=== PATIENT | male | born 1940 | race Caucasian/White ===

== ENCOUNTER 2023-11-02 18:01 | Emergency (ER) | payer MEDICARE, SELFPAY ==
[2023-11-02 18:04] VITALS: BMI 26.6
[2023-11-02 18:07] VITALS: BP 121/83; PULSE 80; RESP 15; TEMP 36.9; O2SAT 97
--- NOTE | 2023-11-02 18:07 | ED_ITS ---
HPI - General Adult 2 General: Chief complaint: General Medical Stated complaint: fall Time Seen by Provider: 11/02/23 18:07 History of Present Illness: 83-year-old male patient comes in today for complaints of fall. Patient reports that he was getting out of the shower and slipped on the wet floor falling and hit in the back of his head. Patient was unable to get up without assistance. EMS was dispatched and brought patient in for further evaluation and treatment. Patient reports no pain. Patient appears nontoxic. Patient did admit that he hit the back of his head on the floor. Patient is poor historian. Associated symptoms: Deny chest pain, confusion, dyspnea, headache(s), nausea, rash or vomiting Review of Systems 2 General: Reports: 10 or more systems reviewed and unremarkable except in HPI and below Const: Denies: fever(s) Card: Denies: chest pain Resp: Reports: non-productive cough; Denies: dyspnea GI: Denies: nausea, vomiting, diarrhea or constipation Musc: Denies: neck pain or back pain Skin/Breast: Denies: rash or erythema Neuro: Denies: headache(s), dizziness or confusion Physical Exam 2 Const: COMMON NORMALS: alert HENMT: COMMON NORMALS: normocephalic HEAD & SCALP: normocephalic Neck/C-Spine: COMMON NORMALS: no meningeal signs CERVICAL SPINE: Yes cervical ROM normal, No Cervical spine tenderness and Yes Paracervical muscle tenderness Resp: COMMON NORMALS: normal respiratory effort and clear to auscultation bilaterally AUSCULTATION: clear to auscultation bilaterally Cardio: COMMON NORMALS: regular rate and regular rhythm RATE: regular rate RHYTHM: regular rhythm GI: COMMON NORMALS: Soft to palpation and non-tender PALPATION: Yes Soft to palpation Back/Pelvis: COMMON NORMALS: thoracic and lumbar spine normal to inspection Extremity: COMMON NORMALS: normal to inspection and full ROM Neuro: SENSORIUM/ORIENTATION: Yes alert MENINGEAL SIGNS: Yes no meningeal signs Skin: COMMON NORMALS: turgor normal GENERAL SKIN EXAM: turgor normal Course 2 Vital Signs: Vital signs: Vital Signs Temperature 98.4 F 11/02/23 18:07 Pulse Rate 80 11/02/23 18:07 Respiratory Rate 15 11/02/23 18:07 Blood Pressure 121/83 11/02/23 18:07 Pulse Oximetry 97 11/02/23 18:07 Oxygen Delivery Me thod Room Air 11/02/23 18:07 MDM - General Adult Medical Decision Making 83-year-old male patient comes in today with complaints of feeling weak and slipping and landing in the wet bathroom floor. Patient did hit the back of his head. Patient denies loss of consciousness. Patient states he was unable to get up off the floor without assistance. EMS was called and assisted patient. Patient lives at home with his . Patient appears nontoxic. Patient moves all extremities well. Abdomen soft nontender. No spinal tenderness is noted. No rib tenderness is noted. Patient does endorse an occasional cough for the past 3 to 4 days. Differential diagnosis includes but not limited to pneumonia, viral syndrome, slip and fall, intracranial bleeding, cervical fracture. CBC was unremarkable. CMP noted a sodium 135 but the remainder of the labs were negative for any abnormality. Urine did have a trace of blood and was sent for culture. Influenza test was negative. COVID was positive. Chest x-ray noted no obvious infiltrates. CT of the head and cervical spine were negative for fracture or intracranial bleed. Reviewed exam with patient and family with recommendations for treatment and follow-up. Patient reported understanding agreed to plan. Lab Data 11/02/23 18:46 11/02/23 18:[address] 11/02/23 18:10 IMPRESSION: No acute intracranial hemorrhage or acute calvarial fracture. Cervical Spine CT 11/02/23 18:31 IMPRESSION: No acute fracture or traumatic malalignment. Laboratory Results WBC 9.40 10^3/uL (3.29-11.43) 11/02/23 18:46 RBC 4.01 10^6/uL (3.85-5.65) 11/02/23 18:46 Hgb 13.30 g/dL (11.27-16.99) 11/02/23 18:46 Hct 38.3 % (37-53) 11/02/23 18:46 MCV 95.5 fl (82-101) 11/02/23 18:46 MCH 33.2 pg (27-33) H 11/02/23 18:46 MCHC 34.7 g/dL (30-55) 11/02/23 18:46 RDW 12.3 % (12.1-15.1) 11/02/23 18:46 Plt Count 165 10^3/cmm (157-399) 11/02/23 18:46 MPV 9.5 fL (7.4-10.4) 11/02/23 18:46 Neut % (Auto) 72.7 % 11/02/23 18:46 Lymph % (Auto) 13.6 % 11/02/23 18:46 [place] % (Auto) 12.6 % 11/02/23 18:46 Eos % (Auto) 0.2 % 11/02/23 18:46 Baso % (Auto) 0.6 % 11/02/23 18:46 Neut # (Auto) 6.83 10^3/uL (1.8-7.7) 11/02/23 18:46 Lymph # (Auto) 1.3 10^3/uL (0.8-4.8) 11/02/23 18:46 [place] # (Auto) 1.2 10^3/uL (0.2-0.9) H 11/02/23 18:46 Eos # (Auto) 0.0 10^3/uL (0.0-0.8) 11/02/23 18:46 Baso # (Auto) 0.1 10^3/uL (0.0-0.1) 11/02/23 18:46 Nucleated RBC % (auto) 0 % 11/02/23 18:46 Nucleated RBCs # 0.0 /100WBC 11/02/23 18:46 Sodium 135 mmol/L (136-145) L 11/02/23 18:46 Potassium 4.4 mmol/L (3.5-5.1) 11/02/23 18:46 Chloride 98 mmol/L (98-107) 11/02/23 18:46 Carbon Dioxide 23 mmol/L (22-29) 11/02/23 18:46 Anion Gap 18.4 (5-19) 11/02/23 18:46 BUN 15 mg/dL (8-23) 11/02/23 18:46 Creatinine 1.0 mg/dL (0.7-1.2) 11/02/23 18:46 GFR Calculation Not Reportable 11/02/23 18:46 Glucose 183 mg/dL (65-115) H 11/02/23 18:46 Calculated Osmolality 286 mOsm/kg (285-295) 11/02/23 18:46 Calcium 9.1 mg/dL (8.5-10.5) 11/02/23 18:46 Total Bilirubin 1.1 mg/dL (0.15-1.2) 11/02/23 18:46 AST 22 U/L (0-40) 11/02/23 18:46 ALT 18 U/L (0-41) 11/02/23 18:46 Alkaline Phosphatase 72 U/L (40-130) 11/02/23 18:46 Creatine Kinase 114 U/L (39-308) 11/02/23 18:46 Total Protein 7.2 g/dL (6.6-8.7) 11/02/23 18:46 Albumin 4.2 g/dL (3.5-5.2) 11/02/23 18:46 Globulin 3.0 g/dL (1.3-4.6) 11/02/23 18:46 Urine Color Yellow (Yellow) 11/02/23 18:45 Urine Appearance Clear (CLEAR) 11/02/23 18:45 Urine pH 6 (5-7) 11/02/23 18:45 Ur Specific [place] 1.030 (1.005-1.030) 11/02/23 18:45 Urine Protein Neg (Negative) 11/02/23 18:45 Urine Glucose (UA) Norm (Normal) 11/02/23 18:45 Urine Ketones Negative (Negative) 11/02/23 18:45 Urine Blood 2+ (Negative) H 11/02/23 18:45 Urine Nitrate Negative (Negative) 11/02/23 18:45 Urine Bilirubin Neg (Negative) 11/02/23 18:45 Urine Urobilinogen Norm mg/dL (Negative) 11/02/23 18:45 Ur Leukocyte Esterase Negative (Negative) 11/02/23 18:45 Urine RBC 0-4 /hpf (0-2) H 11/02/23 18:45 Urine WBC 0-4 /hpf (0-5) H 11/02/23 18:45 Ur Squamous Epith Cells 0-4 /hpf (0-5) H 11/02/23 18:45 Amorphous Sediment Trace /hpf 11/02/23 18:45 Urine Bacteria Trace /hpf (NONE) 11/02/23 18:45 Urine Mucus 2+ /hpf 11/02/23 18:45 Influenza Type A Ag negative (Negative) 11/02/23 18:27 Influenza Type B Ag negative (Negative) 11/02/23 18:27 SARS-CoV-2 Ag (Rapid) positive (Negative) H 11/02/23 18:27 XR interpretation done by ED provider, pending radiology final review Discharge Plan Discharge Patient Disposition: Home Clinical Impression: COVID Condition: Stable Discharge Orders: Discharge ED (Routine); Ordered 11/02/23 Ordered By: Cal Butler Referrals: Chasity Patino MD [Primary Care Provider] - Discharge Diet: Advance as tolerated Discharge Activity: Increase activity as tolerated Patient Instructions: How to Recover from COVID-19 at Home (ED) Activity Restrictions/Additional Instructions: Drink plenty of water and fluids. Acetaminophen and ibuprofen as needed for pain or fever. Activity as tolerated. Quarantine self for 5 days. After that she should wear a mask for 5 days. Follow-up with primary care as needed. Return to ED for worsening symptoms such as severe chest pain or severe shortness of breath. Coding Level of Care Code ED Food Sampler for Kiana Sinclair
--- NOTE | 2023-11-02 18:10 | CTR_ITS ---
PROCEDURE INFORMATION: Exam: CT Head Without Contrast Exam date and time: 11/02/2023 7:02 PM Age: 83 years old Clinical indication: Injury or trauma; Fall; Blunt trauma (contusions or hematomas) TECHNIQUE: Imaging protocol: Computed tomography of the head without contrast. Radiation optimization: All CT scans at this facility use at least one of these dose optimization techniques: automated exposure control; mA and/or kV adjustment per patient size (includes targeted exams where dose is matched to clinical indication); or iterative reconstruction. REPORTING DATA: Count of CT and Cardiac NM exams in prior 12 months: This patient has received 0 known CTs and 0 known cardiac nuclear medicine studies in the 12 months prior to the current study. COMPARISON: CT cervical spin wo con* [id number] 11/02/2023 7:02 PM RADIATION DOSE METRICS: Total DLP (mGy-cm): 1223 FINDINGS: Brain: No acute intracranial hemorrhage. No acute territorial region of [place]-white dedifferentiation. No extra-axial collection. No mass effect or midline shift. Mild generalized cerebral atrophy. Patchy white matter hypodensities, likely chronic microvascular ischemic change. Cerebral ventricles: No acute hyrocephalus. Paranasal sinuses: Visualized sinuses demonstrate mild scattered nonobstructive mucosal thickening. No fluid levels. Mastoid air cells: Visualized mastoid air cells are well aerated. Orbital cavities: No acute abnormality. Bones/joints: No acute calvarial fracture. Soft tissues: No acute abnormality. CT/CT head wo con* [id number] IMPRESSION: No acute intracranial hemorrhage or acute calvarial fracture.
--- NOTE | 2023-11-02 18:10 | XRR_ITS ---
PROCEDURE INFORMATION: Exam: XR Chest Exam date and time: 11/02/2023 6:27 PM Age: 83 years old Clinical indication: Injury or trauma; Fall; Blunt trauma (contusions or hematomas); Additional info: Fall, weak TECHNIQUE: Imaging protocol: Radiologic exam of the chest. Views: 1 view. COMPARISON: No relevant prior studies available. FINDINGS: Lungs: Unremarkable. No consolidation. Pleural spaces: Unremarkable. No pleural effusion. No pneumothorax. Heart/Mediastinum: Unremarkable. No cardiomegaly. Bones/joints: Unremarkable for age. XR/XR chest 1V portable [id number] IMPRESSION: Negative chest exam.
--- NOTE | 2023-11-02 18:31 | CTR_ITS ---
PROCEDURE INFORMATION: Exam: CT Cervical Spine Without Contrast Exam date and time: 11/02/2023 7:02 PM Age: 83 years old Clinical indication: Injury or trauma; Fall; Blunt trauma TECHNIQUE: Imaging protocol: Computed tomography of the cervical spine without contrast. Radiation optimization: All CT scans at this facility use at least one of these dose optimization techniques: automated exposure control; mA and/or kV adjustment per patient size (includes targeted exams where dose is matched to clinical indication); or iterative reconstruction. REPORTING DATA: Count of CT and Cardiac NM exams in prior 12 months: This patient has received 0 known CTs and 0 known cardiac nuclear medicine studies in the 12 months prior to the current study. COMPARISON: CT head wo con* [id number] 11/02/2023 7:02 PM RADIATION DOSE METRICS: Total DLP (mGy-cm): 165 FINDINGS: Bones/joints: Craniocervical and facet alignment is preserved. No acute appearing vertebral body compression deformity. Multilevel cervical spondylosis. Lungs: Unremarkable. Soft tissues: Unremarkable. CT/CT cervical spin wo con* [id number] IMPRESSION: No acute fracture or traumatic malalignment.
[2023-11-02 18:56] LABS: Basophils # 0.1 10^3/uL (0.0-0.1); Basophils % 0.6 %; Eosinophils % 0.2 %; Hematocrit 38.3 % (37-53); Lymphocytes # 1.3 10^3/uL (0.8-4.8); Lymphocytes % 13.6 %; Mean Corpuscular HGB Conc 34.7 g/dL (30-55); Mean Corpuscular Hemoglobin 33.2 pg (27-33); Mean Corpuscular Volume 95.5 fl (82-101); Mean Platelet Volume 9.5 fL (7.4-10.4); Monocytes # 1.2 10^3/uL (0.2-0.9); Monocytes % 12.6 %; Neutrophils # 6.83 10^3/uL (1.8-7.7); Neutrophils % 72.7 %; Nucleated Red Blood Cells % 0 %; Platelet Count 165 10^3/cmm (157-399); Red Blood Count 4.01 10^6/uL (3.85-5.65); Red Cell Distribution Width 12.3 % (12.1-15.1)
[2023-11-02 19:14] LABS: Influenza A by IFA negative (Negative); Influenza B by IFA negative (Negative)
[2023-11-02 19:17] LABS: Glucose Urine UA Norm (Normal); Protein Urine Neg (Negative); Urine Appearance Clear (CLEAR); Urine Color Yellow (Yellow); pH Urine 6 (5-7)
[2023-11-02 19:18] LABS: Add Urine Microscopic? YES; Bilirubin Urine Neg (Negative); Blood Urine 2+ (Negative); Ketones Urine Negative (Negative); Leukocyte Esterase Urine Negative (Negative); Nitrate Urine Negative (Negative); Urobilinogen Urine Norm (Negative)
[2023-11-02 19:20] LABS: Alanine Aminotransferase 18 U/L (0-41); Albumin Level 4.2 g/dL (3.5-5.2); Alkaline Phosphatase 72 U/L (40-130); Anion Gap 18.4 (5-19); Aspartate Amino Transferase 22 U/L (0-40); Blood Urea Nitrogen 15 mg/dL (8-23); Calcium 9.1 mg/dL (8.5-10.5); Carbon Dioxide 23 mmol/L (22-29); Chloride 98 mmol/L (98-107); Glucose 183 mg/dL (65-115); Osmolality Calculated 286 mOsm/kg (285-295); Potassium 4.4 mmol/L (3.5-5.1); Sodium 135 mmol/L (136-145); Total Bilirubin 1.1 mg/dL (0.15-1.2); Total Protein 7.2 g/dL (6.6-8.7)
[2023-11-02 19:24] LABS: Add Urine Culture? No; Amorphous Sediment Urine TRACE /hpf; Bacteria Urine TRACE /hpf; Mucus Urine 2+ /hpf; RBC Urine 0-4 /hpf (0-2); Squamous Epithelial Cell Urine 0-4 /hpf (0-5); WBC Urine 0-4 /hpf (0-5)
[2023-11-02 19:37] LABS: SARS Covid-2 Antigen positive (Negative)
[2023-11-02 20:05] LABS: Creatine Phosphokinase 114 U/L (39-308)
[2023-11-02 20:25] VITALS: RESP 16; O2SAT 97
== END 2023-11-02 20:26 | disposition home or self-care (01) ==
PROVIDERS: Emergency Provider Nurse Practitioner Family; PCP Family Medicine
DX: U07.1 COVID-19 (principal)
CPT/HCPCS: 36415; 70450; 71045; 72125; 80053; 81001; 82550; 85025; 87426; 87804; 99284